=== PATIENT | male | born 2000 | race Asian ===

== ENCOUNTER 2021-09-09 23:34 | Observation (INO) ==
[2021-09-10] MEDS ORDERED: ONDANSETRON INJ 2 MG/ML 2 ML VIAL IV STA (00:03)
[2021-09-10] MEDS ORDERED: GI COCKTAIL ED USE PO ONE (00:03)
[2021-09-10] MEDS ORDERED: FAMOTIDINE 20MG IV PUSH 20 MG/5 ML SYR IV STA (00:03)
[2021-09-10] MEDS ORDERED: SODIUM CHLORIDE 0.9% 1000ML 1,000 ML IV SCH ×2 (00:15→01:45)
[2021-09-10 00:41] LABS: Basophils # (auto) 0.01 K/uL (0-0.2); Basophils % (auto) 0.1 %; Hematocrit (blood only) 43.7 % (42-52); Hemoglobin 15.7 g/dL (14.0-18.0); Immature Granulocytes # (auto) 0.02 K/uL (0.00-0.02); Immature Granulocytes % (auto) 0.2 %; Lymphocytes # (auto) 0.72 K/uL (1.2-3.4); Lymphocytes % (auto) 5.8 %; Mean Corpuscular Hemoglobin 31.8 pg (25-34); Mean Corpuscular Hgb Conc 35.9 g/dL (32-36); Mean Corpuscular Volume 88.5 fL (80-100); Mean Platelet Volume 10.4 fL (7.4-10.4); Monocytes # (auto) 0.54 K/uL (0.11-0.59); Monocytes % (auto) 4.3 %; Neutrophils # (auto) 11.15 K/uL (1.4-6.5); Neutrophils % (auto) 89.6 %; Platelet Count 253 K/uL (130-400); RDW Coefficient of Variation 12.4 % (11.5-14.5); RDW Standard Deviation 39.4 fL (36.4-46.3); Red Blood Count 4.94 M/uL (4.7-6.1); White Blood Count 12.44 K/uL (4.8-10.8)
[2021-09-10 00:45] LABS: Appearance Urine Clear (Clear); Bacteria Urine Automated Negative (Negative); Blood Urine Negative (Negative); Color Urine Dark Yellow; Glucose Urine UA Negative (Negative); Ketones Urine 4+ (Negative); Leukocyte Esterase Urine Negative (Negative); Nitrite Urine Negative (Negative); Protein Urine 1+ (Negative); RBC Urine Automated 0-4 /hpf (0-4); Specific Gravity Urine 1.034 (1.000-1.030); Urobilinogen Urine Negative (Negative)
[2021-09-10 00:56] LABS: Bilirubin Urine 1+ (Negative)
[2021-09-10 01:15] LABS: Albumin Globulin Ratio 1.5 (0.9-2); Albumin Level 4.9 gm/dl (3.4-5.0); BUN Creatinine Ratio 15.6 (10-20); Bilirubin,Total 1.2 mg/dl (0.2-1.0); Calcium 9.6 mg/dl (8.5-10.1); Creatinine Clr Calc Pharmacy 97.7 ml/min; Est GFR (Non-African American) 121.7 ml/min; Globulin 3.3 gm/dl (2.5-4.0); Potassium 3.8 mmol/L (3.5-5.1); Total Protein 8.2 gm/dl (6.0-8.3)
[2021-09-10] MEDS ORDERED: MoRPHine SULFATE 2 MG/ML CARP IV STA (01:42)
[2021-09-10] MEDS ORDERED: OPTIRAY 320 100ml IV ONE (02:07)
[2021-09-10] MEDS ORDERED: MoRPHine SULFATE 4 MG/ML 1 ML CARP\\VIAL IV STA (02:16)
--- NOTE | 2021-09-10 03:56 | History & Physical Report ---
Date of Service September 10, 2021 Assessment & Plan (1) Acute appendicitis: Plan: Due to the patient's clinical presentation and findings on imaging he will be admitted to the hospital and we will proceed as follows: We will keep the patient n.p.o. Analgesics will be provided Antiemetics will be provided We will hydrate with IV fluids We will administer antibiotics in the form of Mefoxin. The patient notes that he does not have any allergies to medicines. I discussed with the patient that I feel he would benefit from an appendectomy. We will tentatively plan on this procedure with Dr. Sanchez in the morning. I discussed the risks, benefits, and expected postoperative course with the patient and he wishes to proceed. Additional recommendations be forthcoming based on his clinical course as unfolds, operative findings, and postoperative recovery We will use SCDs for DVT prevention, no chemical means due to planned surgery Patient be a level 1 full code Patient interview conducted via the iPad carver hand. We reviewed his work-up which reveals a likely acute appendicitis. He continues to have infraumbilical pain as well as nausea. We discussed my recommendation of laparoscopic appendectomy. We discussed other options as well as the risks which include bleeding, infection, injury to another organ, DVT, PE etc. Following my discussion I answered all of his questions. He is agreeable. We will proceed with laparoscopic appendectomy. History of Present Illness Chief Complaint: Abdominal pain Primary Care Provider: [facility] This is a 20-year-old male who presented to [facility] emergency department secondary to abdominal pain that has been present for approximately 2 days. It should be noted that the patient speaks Samoan as his primary language but does understand Croatian. I did offer to provide him with a siebel administrator service but he declined this as his roommate was present with him who translated for him. As noted the patient has had abdominal pain for approximately 2 days. He notes that the pain is located primarily inferior to his umbilicus. He denied any fevers, shakes, chills. He did have some associated nausea and vomiting. He did not note any palliative or provocative factors other than pain medicine that was administered in the emergency department that alleviated his pain. He denies any additional health problems and has never had any abdominal surgery. Today in the emergency department the patient had labs and imaging which I independently reviewed CT scan abdomen pelvis showed that patient had a tubular filled structure posterior to the cecum which measured approximately 1.2 cm. There is a large calcification measuring 9.8 mm within this structure along with a second distal calcification measuring 5.2 mm. These are felt to represent appendicoliths and the interpreting radiologist felt acute appendicitis was a likely diagnosis. Labs include a CBC her white blood cell count was 12.4. Hemoglobin, hematocrit, and platelet count were normal. Chemistry profile showed sodium, potassium, BUN, and creatinine were normal. Urinalysis was performed and was not indicative of infection. A COVID test was negative. At the time of my interview the patient was resting comfortably in bed and his p ain was well controlled. He did receive some intravenous morphine which alleviated his pain. Allergies Allergy/AdvReac Type Severity Reaction Status Date / Time No Known Allergies Allergy Unverified 09/10/21 00:49 Home Medications Medication Instructions Recorded Confirmed Type No Known Home Medications 09/10/21 09/10/21 History Past Med/Surg History Medical History No pertinent past medical history Surgical History No pertinent past surgical history Social History Smoking Status: Never smoker Hx Alcohol Use: No Hx Substance Use: No Preferred Language: Mandarin Samoan Communication Ability: Effective [employer] Sales Consultant Required: No Beliefs That Will Affect Care: None Current Living Situation: Other Current Living Situation Comment: room mate Other Information That Helps Us Care for You: No Feels Safe at Home: Yes Safety Concerns: Feels Safe At This Time Assistive Devices: None Review of Systems Constitutional: no fever and no chills Eyes: no eye pain Ear, Nose, Mouth, Throat: no ear pain Respiratory: no cough and no dyspnea Cardiovascular: no chest pain Gastrointestinal: + abdominal pain, + nausea and + vomiting Genitourinary: no dysuria Musculoskeletal: no back pain Integumentary: no rash Neurologic: no localized weakness Physical Exam Constitutional: WD/WN, vitals as above Eyes: no conjunctival abnormality ENMT: Ears: no hearing impairment and no external ear abnormality Mouth: no oropharynx abnormality Mucous membranes are dry Neck: trachea midline Respiratory: normal respiratory effort, lungs clear to auscultation Cardiovascular: Rate/Rhythm: regular rate and regular rhythm Gastrointestinal (Abdomen): Abdomen is soft and nondistended. There is nonrigid. There is no rebound tenderness or guarding. At the time of my interview the patient had just received some intravenous morphine therefore did not have much in the way of pain particularly in the right lower quadrant at the time of my exam. Musculoskeletal: No calf tenderness Skin: no rashes Neurologic: moves all extremities Results & Data Results & Data ([facility]) Vital Signs (Past 12 Hours) Vital Signs Temp Pulse Pulse Resp BP BP Pulse Ox 09/10/21 03:43 73 14 122/75 98 09/09/21 23:41 36.9 C 80 18 115/81 97 09/09/21 23:34 18 99 PG Care Time/CCT Total # of Minutes Spent Total Time Spent with Patient: Total time spent is greater than 50% in coordination of care (as documented) at patient's floor/unit and/or counseling patient: Coding Level of Care Code INT OBSERVATION CARE 70M LVL 3 Diagnoses Acute appendicitis K35.80
[2021-09-10] MEDS ORDERED: MoRPHine SULFATE 4 MG/ML 1 ML CARP\\VIAL IV PRN (03:58)
[2021-09-10] MEDS ORDERED: ACETAMINOPHEN 1,000 MG/100 ML VIAL IV PRN (03:58)
[2021-09-10] MEDS ORDERED: cefOXitin 2,000 MG/60 ML BAG IV STA (03:58)
[2021-09-10] MEDS: LACTATED RINGER'S 1,000 ML IV SCH ×2 (05:08→14:25)
--- NOTE | 2021-09-10 05:25 | Emergency Department Note ---
History of Present Illness General Chief complaint: Abdominal Pain Stated complaint: SEVERE ABD PAIN History of Present Illness Maximum Pain Intensity: 3 This is a 20-year-old male presenting to the emergency department for evaluation of abdominal pain, nausea, and vomiting. The patient is accompanied by his roommate who is acting as the surgical scrub technologist as the patient does not speak Korean as his first language. The patient is usually healthy and does not report recent fevers or chills. No chest pain, chest tightness, or shortness of breath. He is a [employer] student locally and believes some of his pain may have started after eating spicy food. The patient had several episodes of vomiting tonight, prompting his presentation. His discomfort is currently rated a 3/10. He does not identify aggravating or alleviating factors. Home Medications Medication Instructions Recorded Confirmed Type No Known Home Medications 09/10/21 09/10/21 History Allergies Allergy/AdvReac Type Severity Reaction Status Date / Time No Known Allergies Allergy Unverified 09/10/21 00:49 Past Med/Surg History Medical History No pertinent past medical history Surgical History No pertinent past surgical history Social History Smoking Status: Never smoker Preferred Language: Korean Feels Safe at Home: Yes Review of Systems A total of 10 systems reviewed and were otherwise negative Physical Exam Vital Signs Vital Signs - 24 hr 09/09/21 23:34 09/09/21 23:41 09/10/21 03:43 Temperature 36.9 C Temperature Source Temporal Artery Scan Pulse Rate 80 Pulse Rate [Left Finger] 73 Respiratory Rate 18 18 14 Respiratory Effort / Characteristics Non-Labored Non-Labored Spontaneous Non-Labored Respiratory Depth Normal Normal Normal Respiratory Pattern Regular Regular Blood Pressure 115/81 Blood Pressure [Right Arm] 122/75 Blood Pressure Mean 92 Blood Pressure Mean [Right Arm] 90 Pulse Oximetry 99 97 98 Oxygen Delivery Method Room Air Room Air Room Air Sepsis Recent Fever Within 48 Hours No Sepsis New/Unexplained Change in Mental Status No Sepsis Action Taken by Nursing No Action Required VITALS: Vitals are noted on the nurse's note and reviewed by myself. Vital si gns stable. GENERAL: Well-developed, well-nourished, slender male who is mildly uncomfortable but overall cooperative and pleasant. MOUTH: Mucous membranes moist. Tonsils are not enlarged. Pharynx without erythema, blood, or exudate. Uvula midline. Airway patent. NECK: Supple without nuchal rigidity. No lymphadenopathy. No thyromegaly. Cervical spine is nontender. HEART: Regular rate and rhythm without murmurs gallops or rubs. LUNGS: Clear to auscultation bilaterally without wheezes, rales or rhonchi. No retractions or accessory muscle use. ABDOMEN: Positive normal bowel sounds x 4. Soft with mild tenderness primarily around the right side of the umbilicus. No distinct rebound or guarding. No CVA tenderness. MUSCULOSKELETAL: No muscle atrophy, erythema, or edema noted. Full range of motion in all extremities. NEURO: Patient was alert and oriented to person place and time. CN II through XII grossly intact Course Administered Medications Lactated Ringer's (Lr) 1,000 mls @ 100 mls/hr IV .Q10H DENIS Stop: 10/10/21 03:59 Last Admin: 09/10/21 05:08 Dose: 100 mls/hr Documented by: [id number] Acetaminophen (Ofirmev) 1,000 mg in 100 mls @ 400 mls/hr IV Q8H PRN PRN Reason: Pain Stop: 09/13/21 03:57 Last Admin: 09/10/21 05:10 Dose: 400 mls/hr Documented by: [id number] Discontinued Medications Al Hydrox/Mg Hydrox/Simethicone (Gi Cocktail Ed Use) 1 dose PO ONE ONE Stop: 09/10/21 00:04 Last Admin: 09/10/21 01:10 Dose: 1 dose Documented by: [id number] Famotidine (Pepcid 20mg Iv Push) 20 mg in 5 mls @ 2.5 mls/min IV NOW STA Stop: 09/10/21 00:04 Last Admin: 09/10/21 01:10 Dose: 2.5 mls/min Documented by: [id number] Sodium Chloride (Nss 1000ml) 1,000 mls @ 999 mls/hr IV .Q1H1M DENIS Stop: 09/10/21 01:15 Last Infusion: 09/10/21 02:40 Dose: 0 mls/hr Documented by: [id number] Admin: 09/10/21 01:10 Dose: 999 mls/hr Documented by: [id number] Sodium Chloride (Nss 1000ml) 1,000 mls @ 999 mls/hr IV .Q1H1M DENIS Stop: 09/10/21 02:45 Last Infusion: 09/10/21 04:19 Dose: 0 mls/hr Documented by: [id number] Admin: 09/10/21 02:41 Dose: 999 mls/hr Documented by: [id number] Cefoxitin Sodium (Mefoxin) 2,000 mg in 60 mls @ 100 mls/hr IV NOW STA Stop: 09/10/21 04:33 Last Infusion: 09/10/21 05:12 Dose: 0 mls/hr Documented by: [id number] Admin: 09/10/21 04:23 Dose: 100 mls/hr Documented by: [id number] Ioversol (Optiray 320 100ml) 100 ml IV ONCE ONE Stop: 09/10/21 02:08 Last Admin: 09/10/21 02:07 Dose: 93 ml Documented by: [id number] Morphine Sulfate (Morphine Sulfate 2 Mg/Ml Carp) 2 mg IV NOW STA Stop: 09/10/21 01:43 Last Admin: 09/10/21 01:50 Dose: 2 mg Documented by: [id number] Morphine Sulfate (Morphine Sulfate 4 Mg/Ml 1 Ml Carp\Vial) 4 mg IV NOW STA Stop: 09/10/21 02:17 Last Admin: 09/10/21 02:49 Dose: 4 mg Documented by: [id number] Ondansetron HCl (Ondansetron Inj 2 Mg/Ml 2 Ml Vial) 4 mg IV NOW STA Stop: 09/10/21 00:04 Last Admin: 09/10/21 01:10 Dose: 4 mg Documented by: [id number] Medical Decision Making Differential Diagnosis Differential diagnosis: Etiologies such as biliary colic, cholecystitis, hepatitis, pancreatitis, cardiac disease, pancreatitis, gastritis, peptic ulcer disease, appendicitis, cystitis, diverticulitis, mesenteric ischemia, inflammatory bowel disease, ileus, bowel obstruction, testicular/adnexal torsion, aortic pathology, risa ngles, as well as others were considered Laboratory Data Result diagrams: 09/10/21 00:30 09/10/21 00:30 Lab Results 09/10/21 09/10/2122 Range/Units 00:30 00:30 00:30 WBC 12.44 H (4.8-10.8) K/uL RBC 4.94 (4.7-6.1) M/uL Hgb 15.7 (14.0-18.0) g/dL Hct 43.7 (42-52) % MCV 88.5 (80-100) fL MCH 31.8 (25-34) pg MCHC 35.9 (32-36) g/dL RDW Std Deviation 39.4 (36.4-46.3) fL RDW Coeff of John 12.4 (11.5-14.5) % Plt Count 253 (130-400) K/uL MPV 10.4 (7.4-10.4) fL Immature Gran % (Auto) 0.2 % Neut % (Auto) 89.6 % Lymph % (Auto) 5.8 % Dundy % (Auto) 4.3 % Eos % (Auto) 0.0 % Baso % (Auto) 0.1 % Neut # (Auto) 11.15 H (1.4-6.5) K/uL Lymph # (Auto) 0.72 L (1.2-3.4) K/uL Dundy # (Auto) 0.54 (0.11-0.59) K/uL Eos # (Auto) 0.00 (0-0.5) K/uL Baso # (Auto) 0.01 (0-0.2) K/uL Immature Gran # (Auto) 0.02 (0.00-0.02) K/uL Sodium 136 (136-145) mmol/L Potassium 3.8 (3.5-5.1) mmol/L Chloride 103 (98-107) mmol/L Carbon Dioxide 24 (21-32) mmol/L Anion Gap 9 (3-11) BUN 14 (6-23) mg/dl Creatinine 0.90 (0.6-1.4) mg/dl Est Cr Clr Drug Dosing 97.7 ml/min Est GFR ( Amer) 141.0 ml/min Est GFR (Non-Af Amer) 121.7 ml/min BUN/Creatinine Ratio 15.6 (10-20) Glucose 99 (70-99(Fasting)) mg/dl Calcium 9.6 (8.5-10.1) mg/dl Total Bilirubin 1.2 H (0.2-1.0) mg/dl AST 17 (13-39) U/L ALT 20 (7-52) U/L Alkaline Phosphatase 72 (34-104) U/L Total Protein 8.2 (6.0-8.3) gm/dl Albumin 4.9 (3.4-5.0) gm/dl Globulin 3.3 (2.5-4.0) gm/dl Albumin/Globulin Ratio 1.5 (0.9-2) Lipase 17 (11-82) U/L Urine Color Dark Yellow Urine Appearance Clear (Clear) Urine pH 6.0 (4.5-7.5) Ur Specific [place] 1.034 H (1.000-1.030) Urine Protein 1+ H (Negative) Urine Glucose (UA) Negative (Negative) Urine Ketones 4+ H (Negative) Urine Blood Negative (Negative) Urine Nitrite Negative (Negative) Urine Bilirubin 1+ H (Negative) Urine Urobilinogen Negative (Negative) Ur Leukocyte Esterase Negative (Negative) Urine WBC (Auto) 1-5 (0-5) /hpf Urine RBC (Auto) 0-4 (0-4) /hpf U Hyaline Cast (Auto) 5-10 H (0-5) /lpf U Epithel Cells (Auto) 10-20 H (0-5) /lpf Urine Bacteria (Auto) Negative (Negative) SARS-CoV-2, RNA, NAAT (NEGATIVE) 09/10/21 Range/Units 02:30 WBC (4.8-10.8) K/uL RBC (4.7-6.1) M/uL Hgb (14.0-18.0) g/dL Hct (42-52) % MCV (80-100) fL MCH (25-34) pg MCHC (32-36) g/dL RDW Std Deviation (36.4-46.3) fL RDW Coeff of John (11.5-14.5) % Plt Count (130-400) K/uL MPV (7.4-10.4) fL Immature Gran % (Auto) % Neut % (Auto) % Lymph % (Auto) % Dundy % (Auto) % Eos % (Auto) % Baso % (Auto) % Neut # (Auto) (1.4-6.5) K/uL Lymph # (Auto) (1.2-3.4) K/uL Dundy # (Auto) (0.11-0.59) K/uL Eos # (Auto) (0-0.5) K/uL Baso # (Auto) (0-0.2) K/uL Immature Gran # (Auto) (0.00-0.02) K/uL Sodium (136-145) mmol/L Potassium (3.5-5.1) mmol/L Chloride (98-107) mmol/L Carbon Dioxide (21-32) mmol/L Anion Gap (3-11) BUN (6-23) mg/dl Creatinine (0.6-1.4) mg/dl Est Cr Clr Drug Dosing ml/min Est GFR ( Amer) ml/min Est GFR (Non-Af Amer) ml/min BUN/Creatinine Ratio (10-20) Glucose (70-99(Fasting)) mg/dl Calcium (8.5-10.1) mg/dl Total Bilirubin (0.2-1.0) mg/dl AST (13-39) U/L ALT (7-52) U/L Alkaline Phosphatase (34-104) U/L Total Protein (6.0-8.3) gm/dl Albumin (3.4-5.0) gm/dl Globulin (2.5-4.0) gm/dl Albumin/Globulin Ratio (0.9-2) Lipase (11-82) U/L Urine Color Urine Appearance (Clear) Urine pH (4.5-7.5) Ur Specific [place] (1.000-1.030) Urine Protein (Negative) Urine Glucose (UA) (Negative) Urine Ketones (Negative) Urine Blood (Negative) Urine Nitrite (Negative) Urine Bilirubin (Negative) Urine Urobilinogen (Negative) Ur Leukocyte Esterase (Negative) Urine WBC (Auto) (0-5) /hpf Urine RBC (Auto) (0-4) /hpf U Hyaline Cast (Auto) (0-5) /lpf U Epithel Cells (Auto) (0-5) /lpf Urine Bacteria (Auto) (Negative) SARS-CoV-2, RNA, NAAT NEGATIVE (NEGATIVE) Imaging Data Radiologist's Impression: Preliminary Findings Only See Final Report For Complete Findings CT ABDOMEN & PELVIS With Contrast: Normal heart. Normal lung bases. Normal abdominal viscera. The stomach is slightly distended with no hiatal hernia. Nonspecific small bowel. A tubular fluid-filled structures posterior to the cecum measuring a maximum diameter of 12 mm noted with a large calcification in its measuring 9.8 mm. Second calcification seen distally measuring 5.2 mm. These findings are suggestive to represent appendicoliths. Therefore, cannot exclude early acute appendicitis. Due to numerous surrounding structures and volume averaging, difficult to assess for inflammatory changes. Clinical correlation recommended. No drainable abscess. No free air or free fluid. Normal urinary bladder. Normal bony structures. Radiologist:Ryanne Cabrera MD [facility] Narrative Physical exam and history were performed. Nursing notes, EMR, and Medication List were personally reviewed. Patient appears to have abdominal pain with vomiting bringing him to the ER. I did offer the patient translation services, but he would like his roommate to translate, which is reasonable. The patient does have some pain around his umbilicus with vomiting tonight. IV access was established and labs were obtained. He was given IV morphine, IV Pepcid, GI cocktail, and IV Zofran. He was hydrated with normal saline. KUB was performed. Patient's blood work is as above and was reviewed. He does have a minimally elevated white count of 12,000. He does not have significant anemia or gross electrolyte imbalance. KUB does not show significant acute findings. Lipase and transaminases are not diagnostic. He is dehydrated based on the ketones in his urine and we did hydrate him more with normal saline. On reevaluation the patient clinically seems to feel worse than initial arrival despite treatment here in the ER. He continues with increasing abdominal pain, and I did give him a larger dose of morphine. Because of his mild relief with the above findings I did elect perform CT scan of his abdomen and pelvis with IV contrast. CT scan was reviewed by myself and radiology. I did speak with radiology regarding the reading and there is concern regarding his appendix, as it is 12 mm in size with multiple large appendicoliths. His pain and symptoms certainly could represent acute appendicitis, and because of this I did reach out to the on-call surgical team. The surgical team did evaluate the patient here in the ER. Please see their dictation for further patient course, plan, disposition. The chart was completed utilizing Dragon Speech Voice Recognition Software. Grammatical errors, random word insertions, pronoun errors, and incomplete sentences are an occasional consequence of this system due to software limitations, ambient noise, and hardware issues. Any formal questions or concerns about the content, text, or information contained within the body of this dictation should be directly addressed to the provider for clarification. . Impression & Plan Acute appendicitis Discharge Plan Visit Data Chief Complaint: Abdominal Pain Stated Complaint: SEVERE ABD PAIN ED Provider: Roya Ambrocio ED Midlevel Provider: Bashir Heller Discharge Problem: Acute appendicitis Patient Disposition: Admitted As Inpatient Discharge Instructions Interventions: ED Discharge Assessment Last Done: 09/10/21 04:36
--- NOTE | 2021-09-10 06:37 | CT Scan Report ---
CT OF THE ABDOMEN AND PELVIS WITH CONTRAST CLINICAL HISTORY: Upper abdominal pain. Nausea and vomiting. COMPARISON STUDY: KUB September 10, 2021. TECHNIQUE: Following IV administration of 93 mL of Optiray, axial images of the abdomen and pelvis we re obtained from the lung bases to the proximal femurs. Images were reviewed in the axial, sagittal, and coronal planes. IV contrast was administered without complication. Automated exposure control wa s utilized for the study. A dose lowering technique was utilized adhering to the principles of ALARA . CT DOSE: 266.56 mGy.cm FINDINGS: Lung bases are unremarkable. No pneumatosis, free air or portal venous gas is present. Live r, spleen, adrenal glands, kidneys and pancreas are normal. There is no biliary or pancreatic ductal dilatation. No peripancreatic or pericholecystic infiltration is present a few appendicoliths within the appendix measure up to 1.5 cm. The appendix is dilated, measuring 1 cm in caliber. There is no pe riappendiceal infiltration. There is no free air. No abscess is present. There is no evidence for a b owel obstruction. A small amount of fluid within the pelvis is noted. Major vasculature is patent. No lymphadenopathy. No acute fracture or suspicious lesion is identified within the visualized skeletal structures. Mild wall thickening of the distal stomach is likely within normal limits. IMPRESSION: 1. Several appendicoliths within the appendix which is mildly dilated. No periappendiceal infiltratio n. No abscess. No free air. Acute appendicitis cannot be excluded. 2. Mild wall thickening of the distal stomach. This is likely within normal limits. Gastritis could a ppear similar. ACT 112: Negative or not required by law. Electronically signed by: Uziel Gottlieb M.D. 09/10/2021 6:36 AM
--- NOTE | 2021-09-10 06:45 | XRay Report ---
KUB CLINICAL HISTORY: Upper abdominal pain. COMPARISON STUDY: None. FINDINGS: Bowel gas pattern is normal. A 1.5 x 0.9 cm right lower quadrant calcification is present. This could reflect an appendicolith. Amount of stool is within normal limits. IMPRESSION: 1. No evidence for a bowel obstruction. 2. 1 5 x 0.9 cm right lower quadrant calcification which could reflect an appendicolith. ACT 112: Negative or not required by law. Electronically signed by: Uziel Gottlieb M.D. 09/10/2021 6:43 AM
[2021-09-10] MEDS: ONDANSETRON INJ 2 MG/ML 2 ML VIAL IV PRN ×3 (08:07→11:46)
[2021-09-10] MEDS ORDERED: EPINEPHrine INJ 1 MG/ML AMP ONE (09:18)
[2021-09-10] MEDS ORDERED: BUPIVACAINE 0.5 % 5 MG/1 ML MPF 30ML VIAL ONE (09:18)
[2021-09-10] MEDS ORDERED: cefOXitin 2,000 MG in DEXTROSE 5% 50 ML IV SCH (10:00)
[2021-09-10] MEDS ORDERED: LIDOCAINE 2% 2 ML VIAL/AMP(20MG/ML) INFIL ONE (11:08)
[2021-09-10] MEDS ORDERED: ONDANSETRON INJ 2 MG/ML 2 ML VIAL ONE (11:08)
[2021-09-10] MEDS ORDERED: DEXAMETHASONE SOD INJ 4 MG/ML VIAL ONE (11:08)
[2021-09-10] MEDS ORDERED: ROCURONIUM BROMIDE 10 MG/ML 5 ML VIAL IV ONE (11:08)
[2021-09-10] MEDS ORDERED: PROPOFOL IV EMULSION 10 MG/ML 20 ML VIAL IV ONE (11:08)
[2021-09-10] MEDS ORDERED: MIDAZOLAM HCL 1 MG/ML 2ML VIAL ONE (11:08)
[2021-09-10] MEDS ORDERED: fentaNYL citrate 100 MCG/2 ML VIAL ONE ×3 (11:09→13:22)
[2021-09-10] MEDS ORDERED: FAMOTIDINE/PF 20 MG/2 ML VIAL IV ONE (11:56)
[2021-09-10] MEDS ORDERED: ePHEDrine sulfate 50 MG/ML AMP IV PRN (12:03)
[2021-09-10] MEDS ORDERED: ATROPINE SULFATE 0.1 MG/ML 10ML SYR IV PRN (12:03)
[2021-09-10] MEDS ORDERED: ONDANSETRON INJ 2 MG/ML 2 ML VIAL IV PRN (12:03)
[2021-09-10] MEDS ORDERED: fentaNYL citrate 100 MCG/2 ML VIAL IV PRN (12:03)
--- NOTE | 2021-09-10 12:03 | Anesthesiology Consultation ---
Date of Service September 10, 2021 Assessment & Plan Chart Review Chart Review: Acceptable Risk for Surgery and Patient NOT seen in Pre Admission Testing Consults Requested none ASA ASA1E Proposed Anesthesia Anesthesia Type: General Risk / Benefits Reviewed With: PT / POA / Parent / Guardian, Accepts Plan and Informed Consent Obtained History Surgery Operation Date: 09/10/21 09:05 Proposed Procedures p Laparoscopic Appendectomy - Adis Sanchez, DO Height/Weight Height: 5 ft 9 in Weight: 54.3 kg Allergies Allergy/AdvReac Type Severity Reaction Status Date / Time No Known Allergies Allergy Unverified 09/10/21 00:49 Medications Home Medications Medication Instructions Recorded Confirmed Last Taken No Known Home Medications 09/10/21 09/10/21 Unknown Active Medications Generic Name Dose Route Start Last Admin Trade Name Freq PRN Reason Stop Dose Admin Lactated Ringer's 1,000 mls @ 100 mls/hr 09/10/21 04:00 09/10/21 10:50 Lr IV 10/10/21 03:59 0 mls/hr .Q10H DENIS Infusion Acetaminophen 1,000 mg in 100 mls @ 400 mls/hr 09/10/21 03:58 09/10/21 05:42 Ofirmev IV 09/13/21 03:57 Infused Q8H PRN Infusion Pain Cefoxitin Sodium 2,000 mg/ 60 mls @ 120 mls/hr 09/10/21 10:00 09/10/21 09:50 Dextrose IV 09/20/21 09:59 Infused Q6H DENIS Infusion Morphine Sulfate 3 mg 09/10/21 03:58 09/10/21 08:02 Morphine Sulfate 4 Mg/Ml 1 Ml Carp\Vial IV 09/24/21 03:57 3 mg Q4H PRN Administration Pain Ondansetron HCl 4 mg 09/10/21 03:58 09/10/21 11:46 Ondansetron Inj 2 Mg/Ml 2 Ml Vial IV 10/10/21 03:57 4 mg Q6H PRN Administration Nausea And Vomiting NPO Date Last Intake of Fluids: 09/08/21 Time Last Intake of Fluids: 18:00 Date Last Intake of Solids: 09/08/21 Time Last Intake of Solids: 18:00 Past Medical History Medical History No pertinent past medical history Exercise / Class Metabolic Activity II 4-5 Yardwork/Stairs/Walk up hill Past Surgical History Surgical History No pertinent past surgical history Past Anesthesia History No Hx of Anesthesia Complications and No Family Hx of Anesthesia Complications History of PONV No Hx of PONV and No Hx of Motion Sickness Social History Smoking Status: Never smoker Hx Alcohol Use: No Hx Substance Use: No Physical Exam Vital Signs Last Vital Signs Temp 37 C 09/10/21 11:02 Pulse 75 09/10/21 11:02 Resp 16 09/10/21 11:02 BP 118/92 09/10/21 11:02 Pulse Ox 99 09/10/21 11:02 ENMT Mouth: no dentition abnormality Thyromental Distance: > or= 3.5 Finger Breadths Mallampati Class: II Neck normal visual inspection Respiratory normal respiratory effort Auscultation: lungs clear to auscultation bilaterally Cardiovascular Rate/Rhythm: regular rate and regular rhythm Psychiatric Orientation: alert Testing Laboratory Results 09/10/21 00:30 09/10/21 00:30 Urine Color Dark Yellow 09/10/21 00:30 Urine Appearance Clear (Clear) 09/10/21 00:30 Urine pH 6.0 (4.5-7.5) 09/10/21 00:30 Ur Specific [place] 1.034 (1.000-1.030) H 09/10/21 00:30 Urine Protein 1+ (Negative) H 09/10/21 00:30 Urine Glucose (UA) Negative (Negative) 09/10/21 00:30 Urine Ketones 4+ (Negative) H 09/10/21 00:30 Urine Nitrite Negative (Negative) 09/10/21 00:30 Ur Leukocyte Esterase Negative (Negative) 09/10/21 00:30 Urine WBC (Auto) 1-5 /hpf (0-5) 09/10/21 00:30 Urine RBC (Auto) 0-4 /hpf (0-4) 09/10/21 00:30 U Hyaline Cast (Auto) 5-10 /lpf (0-5) H 09/10/21 00:30 U Epithel Cells (Auto) 10-20 /lpf (0-5) H 09/10/21 00:30 Urine Bacteria (Auto) Negative (Negative) 09/10/21 00:30
[2021-09-10] MEDS ORDERED: PROMETHAZINE HCL INJ 25 MG/ML 1 ML VIAL ONE (12:32)
[2021-09-10] MEDS ORDERED: NEOSTIGMINE METHYLSULFATE 1 MG/ML 10ML VIAL ONE (12:58)
[2021-09-10] MEDS ORDERED: GLYCOPYRROLATE 0.2 MG/ML VIAL ONE (12:58)
[2021-09-10] MEDS ORDERED: SUGAMMADEX SODIUM 200 MG/2 ML VIAL IV ONE (12:59)
[2021-09-10] MEDS ORDERED: KETOROLAC 30 MG/ML VIAL ONE (13:13)
--- NOTE | 2021-09-10 13:13 | Operative Report ---
PG Post Operative Report Pre & Post Diagnosis Operation Date: 09/10/21 09:05 Pre-Op Diagnosis: Acute appendicitis Post-Op Diagnosis: Acute appendicitis I identified the patient and participated in the time-out.: Yes Procedure Operation Date: 09/10/21 09:05 Actual Procedures p Laparoscopic Appendectomy(Not Applicable) - Adis Sanchez DO Surgeon Adis Sanchez DO Quality Assurance Monitor Final cl Rivera Estimated Blood Loss 5 Findings Consistent with Post-Op Diagnosis Specimens appendix Description of Procedure After informed consent was obtained the patient was taken to the operating room and placed in supine position. After successful intubation a Esquivel catheter was placed and the left arm was tucked. I began by making a periumbilical incision with an 11 blade scalpel and carried this down through the soft tissue using electrocautery. The anterior rectus fascia was opened using electrocautery and 2 #0 Vicryl stay sutures were placed. The peritoneum was elevated using hemostats and incised under direct vision using a Metzenbaum scissor. A finger sweep was performed. A 12 mm Lamb trocar was placed and the abdomen was insufflated to 18 mmHg. A laparoscope was inserted and the abdomen was examined in 360. A suprapubic 5 mm port and a left lower quadrant 12 mm port were placed under direct vision. The patient was air planed to the left as well as placed in a slight Trendelenburg position. We began by looking in the right lower quadrant. We were able to readily identify the appendix and it was grossly inflamed. It had not perforated. There is a small amount of purulent fluid in the right lower quadrant and the pelvis. We immediately irrigated and suctioned this out. I was able to use primarily blunt dissection to pull the appendix away from the right lower quadrant sidewall. I began by making a window in the mesentery of the appendix near its base with the cecum. I was then able to use a CHARIS brown cartridge stapler to transect first the mesentery of the appendix followed by the appendix itself at its base with the cecum. It was then placed into an Endo Catch bag and removed from the camera port site. We thoroughly irrigated the right lower quadrant as well as the pelvis. There was adequate hemostasis. I ran the small bowel backwards from the terminal ileum for about 6 feet all of which was normal. All the peritoneal surfaces were normal. Small/ large bowel, liver, stomach etc. all appeared grossly normal. We did a final irrigation and then removed all the trochars and desufflated the abdomen. The fascia of the camera port as well as the left lower quadrant were closed using 0 Vicryl in [id number] fashion. Wounds were all irrigated and closed using 4-0 Monocryl. Marcaine was injected around them for postoperative analgesia and skin glue used as a dressing. The patient was awakened extubated and transferred to recovery in stable condition. My physician's temporary office assistant was present through the entire case. She assisted with prepping the patient and helped with exposure for port placement, helped run the camera and helped with fascial/wound closure at the end of the procedure as well as dressing placement. I attest to the content of the Intraoperative Record and any orders documented therein. Any exceptions are noted below. I attest to the content of the Intraoperative Record and any orders documented therein. Any exceptions are noted below.
--- NOTE | 2021-09-10 13:37 | Anesthesiology Progress Note ---
Date of Service September 10, 2021 Anesthesia Post Procedure Vital Signs Vital Signs: Temp Pulse Pulse Pulse Resp BP BP 09/10/21 11:02 37 C 75 16 118/92 09/10/21 07:45 36.9 C 67 14 09/10/21 04:50 36.9 C 75 16 09/10/21 03:43 73 14 09/09/21 23:41 36.9 C 80 18 115/81 09/09/21 23:34 18 BP Pulse Ox 09/10/21 11:02 99 09/10/21 07:45 118/70 97 09/10/21 04:50 120/82 97 09/10/21 03:43 122/75 98 09/09/21 23:41 97 09/09/21 23:34 99 Pain Intensity Upper Abdomen: Pain Intensity: 7 Lower Abdomen: Pain Intensity: 4 Transfer of Care Handoff Completed per policy Notes Mental Status: alert / awake / arousable Patient Amnestic to Procedure: Yes Nausea / Vomiting: adequately controlled Pain: adequately controlled Airway Patency, RR, SpO2: stable & adequate BP & HR: stable & adequate Hydration State: stable & adequate Anesthetic Complications: no major complications apparent
[2021-09-10] MEDS ORDERED: oxyCODONE/ACETAMINOPHEN 5mg/325mg TAB PO PRN ×2 (14:18)
--- NOTE | 2021-09-11 09:07 | Discharge Summary ---
Date of Service September 10, 2021 Admission HPI Per Admitting Provider This is a 20-year-old male who presented to [facility] emergency department secondary to abdominal pain that has been present for approximately 2 days. It should be noted that the patient speaks German as his primary language but does understand B[place]. I did offer to provide him with a manager social media service but he declined this as his roommate was present with him who translated for him. As noted the patient has had abdominal pain for approximately 2 days. He notes that the pain is located primarily inferior to his umbilicus. He denied any fevers, shakes, chills. He did have some associated nausea and vomiting. He did not note any palliative or provocative factors other than pain medicine that was administered in the emergency department that alleviated his pain. He denies any additional health problems and has never had any abdominal surgery. Today in the emergency department the patient had labs and imaging which I independently reviewed CT scan abdomen pelvis showed that patient had a tubular filled structure posterior to the cecum which measured approximately 1.2 cm. There is a large calcification measuring 9.8 mm within this structure along with a second distal calcification measuring 5.2 mm. These are felt to represent appendicoliths and the interpreting radiologist felt acute appendicitis was a likely diagnosis. Labs include a CBC her white blood cell count was 12.4. Hemoglobin, hematocrit, and platelet count were normal. Chemistry profile showed sodium, potassium, BUN, and creatinine were normal. Urinalysis was performed and was not indicative of infection. A COVID test was negative. At the time of my interview the patient was resting comfortably in bed and his pain was well controlled. He did receive some intravenous morphine which alleviated his pain. Principal Diagnosis acute appendicitis Discharge Exam awake, communicative Respiratory normal respiratory effort Gastrointestinal (Abdomen) Inspection/Auscultation: + abdominal surgical incision (c/d/i with skin glue) Percussion/Palpation: + abdomen tender (expected ammy incisional discomfort to palpation ) and abdomen soft Discharge Data Allergies Allergy/AdvReac Type Severity Reaction Status Date / Time No Known Allergies Allergy Unverified 09/10/21 00:49 Consultations 09/10/21 03:31 Consult General Surgery Stat Procedures Performed Operation Date: 09/10/21 09:05 Actual Procedures p Laparoscopic Appendectomy(Not Applicable) - Adis Sanchez, Ordered Studies 09/10/21 01:42 CT abd pelvis IV con only Urgent Hospital Course (1) Acute appendicitis: This is a 20yM who presented to the [facility] ED on 09/10/21 with abdominal pain. Workup in the ED showed a WBC of 12.[address] a/p concerning for acute appendicitis. The patient was tender to palpation infraumbilically. Patient made NPO with IVF, given pre op abx, and booked for the OR. On 09/10 the patient went to the OR with Dr. Sanchez for a laparoscopic appendectomy. The patient tolerated the procedure well, see operative report for full details. Post operatively the patient's diet was advanced, pain managed on prn meds, and incisions clean/dry/intact. On POD#0 the patient was deemed stable for discharge to home. Total Time Total Time Spent Total Time Spent (In Minutes): 10 Discharge Plan Discharge Items Patient Disposition: Home - Self-Care Reason For Visit: APPY Discharge Diagnosis: laparoscopic appendectomy Activity: Per Instructions section Lifting: No more than 10 pounds Bathing Comment: may shower starting 09/11/21; no soaking in tubs/pools Exercise/Sports: Wait until after follow-up appointment Driving/Machine Use: wait at least 3 days; no driving while taking narcotics for pain Non-emergency contact: Surgeon Call non-emergency contact if: you have any medication questions, your symptoms worsen, your pain is not controlled, your pain is worsening, your pain is concerning for you, you have a fever, your temperature is above 101.5, your wound has increased redness, your wound has increased drainage and your wound pain has increased Follow-up/Referrals: Adis Sanchez, [Surgeon] - (Please call to schedule follow up in clinic within 2 weeks) [facility] [Primary Care Provider] - Diet: Regular Addtl Attending Provider Instructions: You may purchase Ibuprofen over the counter if needed for additional pain control. -Ibuprofen 200mg-600mg orally every 6-8 hours, as needed for pain. Take with food. -If you are not requiring the narcotic Hendrum for pain you may take plain Tylenol. Do not take plain Tylenol and Hendrum together as they are both contain Acetaminophen and you should not exceed >3grams of Acetaminophen within a 24 hour time period. Pending Studies at Discharge: Yes Studies:: surgical pathology Stand-Alone Forms: My [facility], Opioid Pain Management, Smoking Cessation Medications and DC Order Prescriptions: New hydrocodone-acetaminophen 5-325 mg tablet 1 - 2 tab PO .q4h- q6h PRN (Reason: pain, for initial therapy, max 6 tabs per day ) Qty: 15 RF: 0 Discharge Orders: Discharge Order (Routine); Ordered 09/10/21 Ordered By: Raegan Gonzalez/Other Patient Handouts: Appendectomy, What Is Appendicitis? Admission Data Admit Date/Time: 09/10/21 03:58 Attending Provider: Adis Sanchez Admit Provider: Adis Sanchez Primary Care Provider: [facility] Other Providers: Adis Sanchez Other Interventions: Discharge Summary Assessment (RN) Last Done: 09/10/21 17:56 Coding Level of Care Code D/C DAY MANAGEMENT <30 MINS Diagnoses Acute appendicitis K35.80
== END 2021-09-10 18:44 | disposition home or self-care (01) ==
LOC: ED 23:34 → 3W 23:34
DX: K35.80 Unspecified acute appendicitis